=== PATIENT | male | born 1995 | race American Indian/Alaskan Native ===

== ENCOUNTER 2018-10-05 20:24 | Emergency (ER) | payer OTHER ==
[2018-10-05] MEDS ORDERED: ZOFRAN IV ONE ×2 (20:41→22:00)
[2018-10-05] MEDS ORDERED: NACL 0.9% 1000 ML 1,000 ML IV ONE (20:42)
--- NOTE | 2018-10-05 20:45 | Emergency Department Report ---
Chief Complaint: Nausea/Vomiting/Diarrhea Stated Complaint: FELICITAS/VOMITING Time Seen by Provider: 10/05/18 20:38 - HPI History of Present Illness: Pt has N/V/D since 2PM today Not tolerating PO intake no fever, urinary sx No past abdominal surgeries + drinker +smoker + marijuana use - Exam Vital Signs: Vital Signs 10/05/18 20:39 Temperature 97.9 F Pulse Rate 97 H Respiratory 20 Rate Blood Pressure 137/91 O2 Sat by Pulse 100 Oximetry MSE screening note: Focused history and physical exam performed. Due to findings the following was ordered:CBC, CMP ED Disposition for MSE Condition: Stable
[2018-10-05 21:24] LABS: Alanine Aminotransferase 23 units/L (7-56); Albumin 5.3 g/dL (3.9-5); BUN/Creatinine Ratio 9; Blood Urea Nitrogen 10 mg/dL (9-20); Calcium 10.6 mg/dL (8.4-10.2); Hemolysis Index 9
[2018-10-05 21:44] LABS: Mean Corpuscular HGB Conc 36 % (32-34); Mean Corpuscular Volume 90 fl (84-94); Platelet Count 239 K/mm3 (140-440); Red Blood Count 4.96 M/mm3 (3.65-5.03); Red Cell Distribution Width 13.6 % (13.2-15.2)
[2018-10-05 21:53] LABS: Hematocrit 44.8 % (35.5-45.6)
[2018-10-05] MEDS ORDERED: MORPHINE IV ONE (22:00)
[2018-10-05 22:29] LABS: Basophils % (Manual) 0 % (0.0-1.8); Eosinophils % (Manual) 0 % (0.0-4.3); RBC Morphology Normal; Total Cells Counted 100
--- NOTE | 2018-10-05 22:56 | XRay Report ---
PROCEDURE: XR CHEST 1V AP TECHNIQUE: Chest radiograph single view. HISTORY: sob COMPARISONS: None . FINDINGS: Heart: Normal. Mediastinum/Vessels: Normal. Lungs/Pleural space: Normal. Bony thorax: No acute osseous abnormality. Life support devices: None. IMPRESSION: No acute cardiopulmonary abnormality. This document is electronically signed by Dre Baeza MD., October 05 2018 10:54:36 PM ET
--- NOTE | 2018-10-05 23:31 | Emergency Department Report ---
ED Abdominal Pain HPI - General Chief Complaint: Nausea/Vomiting/Diarrhea Stated Complaint: FELICITAS/VOMITING Time Seen by Provider: 10/05/18 20:38 Source: patient Mode of arrival: Wheelchair Limitations: No Limitations - History of Present Illness Initial Comments: 23-year-old male with no significant past medical or surgical history presents to the hospital complaints of generalized abdominal pain, nausea, vomiting, and diarrhea. Initially patient is refusing to speak instead his mother and grandmother are speaking for him. Grandmother states she received a call from the patient's girlfriend (they live together) stating that he was not feeling well. Upon grandmother's arrival she noted patient shaking uncontrollably on the floor with repeated episodes of vomiting. No urinary incontinence noted. She also states that patient was short of breath and diaphoretic. Patient points to his lower abdomen area of pain, admits to vomiting, and complains of feeling short of breath. He denies dysuria, recent travel, fever, or sick contacts. As per screening exam patient smokes cigarettes, drinks alcohol, and uses marijuana. Severity scale (0 -10): 0 - Related Data Previous Rx's Medication Instructions Recorded Last Taken Type Cyclobenzaprine HCl [Flexeril 5mg] 5 mg PO TID #14 tablet 08/29/14 Unknown Rx Ibuprofen [Motrin] 800 mg PO Q8H PRN #30 tablet 08/29/14 Unknown Rx Bismuth Subsalicylate [Pepto 524 mg PO QID PRN #20 tab.chew 10/06/18 Unknown Rx Bismol] Ibuprofen [Motrin] 800 mg PO Q8HR PRN #30 tablet 10/06/18 Unknown Rx Ondansetron [Zofran Odt] 4 mg PO Q8HR PRN #20 tab.rapdis 10/06/18 Unknown Rx Allergies Allergy/AdvReac Type Severity Reaction Status Date / Time No Known Allergies Allergy Unverified 08/29/14 19:05 ED Review of Systems ROS: Stated complaint: FELICITAS/VOMITING Other details as noted in HPI Comment: All other systems reviewed and negative ED Past Medical Hx - Past Medical History Previous Medical History?: No - Surgical History Past Surgical History?: No - Social History Smoking Status: Current Every Day Smoker Substance Use Type: Alcohol, Marijuana - Medications Home Medications: Home Medications Medication Instructions Recorded Confirmed Last Taken Type Cyclobenzaprine HCl [Flexeril 5mg] 5 mg PO TID #14 tablet 08/29/14 Unknown Rx Ibuprofen [Motrin] 800 mg PO Q8H PRN #30 tablet 08/29/14 Unknown Rx Bismuth Subsalicylate [Pepto 524 mg PO QID PRN #20 tab.chew 10/06/18 Unknown Rx Bismol] Ibuprofen [Motrin] 800 mg PO Q8HR PRN #30 tablet 10/06/18 Unknown Rx Ondansetron [Zofran Odt] 4 mg PO Q8HR PRN #20 tab.rapdis 10/06/18 Unknown Rx ED Physical Exam - General Limitations: No Limitations - Other Other exam information: General: No limitations, patient is alert in no acute distress Head exam: Atraumatic, normocephalic Eyes exam: Normal appearance, pupils equal reactive to light, extraocular movements intact ENT: Moist mucous membrane, normal oropharynx Neck exam: Normal inspection, full range of motion, no meningismus nontender Respiratory exam: Clear to auscultation bilateral, no wheezes, rales, crackles Cardiovascular: Normal rate and rhythm, normal heart sounds Abdomen: Soft, nondistended, right lower quadrant suprapubic tenderness, with normal bowel sounds, no rebound, or guarding Extremity: Full range of motion normal inspection no deformity Back: Normal Inspection, full range of motion, no tenderness Neurologic: Alert, oriented x3, cranial nerves intact, no motor or sensory deficit Psychiatric: normal affect, normal mood Skin: Warm, dry, intact ED Course Vital Signs 10/05/18 10/05/18 10/05/18 20:39 21:39 21:49 Temperature 97.9 F Pulse Rate 97 H Respiratory 20 20 Rate Blood Pressure 137/91 Blood Pressure [Right] O2 Sat by Pulse 100 100 Oximetry 10/05/18 10/05/18 10/05/18 21:54 22:00 22:16 Temperature 98.6 F Pulse Rate 94 H 98 H 113 H Respiratory 143 H 13 14 Rate Blood Pressure 150/93 150/93 Blood Pressure 143/97 [Right] O2 Sat by Pulse 100 100 100 Oximetry 10/05/18 10/05/18 10/05/18 22:19 22:46 23:35 Temperature Pulse Rate 103 H 94 H Respiratory 18 14 15 Rate Blood Pressure 150/93 150/93 Blood Pressure [Right] O2 Sat by Pulse 100 100 Oximetry 10/05/18 10/06/18 10/06/18 23:41 00:00 00:16 Temperature Pulse Rate 83 105 H 108 H Respiratory 17 17 16 Rate Blood Pressure 127/68 132/67 Blood Pressure 127/68 [Right] O2 Sat by Pulse 98 100 Oximetry 10/06/18 10/06/18 00:30 00:46 Temperature Pulse Rate 81 101 H Respiratory 17 13 Rate Blood Pressure 124/65 124/65 Blood Pressure [Right] O2 Sat by Pulse 97 99 Oximetry - Reevaluation(s) Reevaluation #1: 10/06/18 01:02 The patient received pain medicine he is up and ambulating without any distress and able to communicate without difficulty. Informed of increased WBC count and urine but he denies symptoms. Patient will be treated empirically since gonorrhea and chlamydia is pending for several days. ED Medical Decision Making - Lab Data Result diagrams: 10/05/18 20:53 10/05/18 20:53 Lab Results 10/05/18 10/05/18 10/06/18 Range/Units 20:53 20:53 00:00 WBC 10.6 (4.5-11.0) K/mm3 RBC 4.96 (3.65-5.03) M/mm3 Hgb 16.0 H (11.8-15.2) gm/dl Hct 44.8 (35.5-45.6) % MCV 90 (84-94) fl MCH 32 (28-32) pg MCHC 36 H (32-34) % RDW 13.6 (13.2-15.2) % Plt Count 239 (140-440) K/mm3 Add Manual Diff Complete Total Counted 100 Seg Neutrophils % Manager Baby Seg Neuts % (Manual) 89.0 H (40.0-70.0) % Band Neutrophils % 0 % Lymphocytes % (Manual) 4.0 L (13.4-35.0) % Reactive Lymphs % (Man) 0 % Monocytes % (Manual) 7.0 (0.0-7.3) % Eosinophils % (Manual) 0 (0.0-4.3) % Basophils % (Manual) 0 (0.0-1.8) % Metamyelocytes % 0 % Myelocytes % 0 % Promyelocytes % 0 % Blast Cells % 0 % Nucleated RBC % Not Reportable Seg Neutrophils # Man 9.4 H (1.8-7.7) K/mm3 Band Neutrophils # 0.0 K/mm3 Lymphocytes # (Manual) 0.4 L (1.2-5.4) K/mm3 Abs React Lymphs (Man) 0.0 K/mm3 Monocytes # (Manual) 0.7 (0.0-0.8) K/mm3 Eosinophils # (Manual) 0.0 (0.0-0.4) K/mm3 Basophils # (Manual) 0.0 (0.0-0.1) K/mm3 Metamyelocytes # 0.0 K/mm3 Myelocytes # 0.0 K/mm3 Promyelocytes # 0.0 K/mm3 Blast Cells # 0.0 K/mm3 WBC Morphology Not Reportable Hypersegmented Neuts Not Reportable Hyposegmented Neuts Not Reportable Hypogranular Neuts Not Reportable Smudge Cells Not Reportable Toxic Granulation Not Reportable Toxic Vacuolation Not Reportable Dohle Bodies Not Reportable Pelger-Huet Anomaly Not Reportable Mat Rods Not Reportable Platelet Estimate Appears normal Clumped Platelets Not Reportable Plt Clumps, EDTA Not Reportable Large Platelets Not Reportable Giant Platelets Not Reportable Platelet Satelliting Not Reportable Plt Morphology Comment Not Reportable RBC Morphology Normal Dimorphic RBCs Not Reportable Polychromasia Not Reportable Hypochromasia Not Reportable Poikilocytosis Not Reportable Anisocytosis Not Reportable Microcytosis Not Reportable Macrocytosis Not Reportable Spherocytes Not Reportable Pappenheimer Bodies Not Reportable Sickle Cells Not Reportable Target Cells Not Reportable Tear Drop Cells Not Reportable Ovalocytes Not Reportable Helmet Cells Not Reportable Stokes-[place]rie Bodies Not Reportable Ingraham Rings Not Reportable [place] Cells Not Reportable Bite Cells Not Reportable Crenated Cell Not Reportable Elliptocytes Not Reportable Acanthocytes (Spur) Not Reportable Rouleaux Not Reportable Hemoglobin C Crystals Not Reportable Schistocytes Not Reportable Malaria parasites Not Reportable Lv Bodies Not Reportable Hem Pathologist Commnt No Sodium 140 (137-145) mmol/L Potassium 4.1 (3.6-5.0) mmol/L Chloride 100.8 (98-107) mmol/L Carbon Dioxide 21 L (22-30) mmol/L Anion Gap 22 mmol/L BUN 10 (9-20) mg/dL Creatinine 1.1 (0.8-1.5) mg/dL Estimated GFR > 60 ml/min BUN/Creatinine Ratio 9 % Glucose 128 H (75-100) mg/dL Calcium 10.6 H (8.4-10.2) mg/dL Total Bilirubin 0.80 (0.1-1.2) mg/dL AST 19 (5-40) units/L ALT 23 (7-56) units/L Alkaline Phosphatase 98 (35-129) units/L Total Protein 8.0 (6.3-8.2) g/dL Albumin 5.3 H (3.9-5) g/dL Albumin/Globulin Ratio 2.0 % Urine Color Yellow (Yellow) Urine Turbidity Clear (Clear) Urine pH 8.0 H (5.0-7.0) Ur Specific [place] 1.060 H (1.003-1.030) Urine Protein <15 mg/dl (Negative) mg/dL Urine Glucose (UA) Neg (Negative) mg/dL Urine Ketones Neg (Negative) mg/dL Urine Blood Neg (Negative) Urine Nitrite Neg (Negative) Ur Reducing Substances Not Reportable Urine Bilirubin Neg (Negative) Urine Ictotest Not Reportable Urine Urobilinogen < 2.0 (<2.0) mg/dL Ur Leukocyte Esterase Neg (Negative) Urine WBC (Auto) 9.0 H (0.0-6.0) /HPF Urine RBC (Auto) 2.0 (0.0-6.0) /HPF U Epithel Cells (Auto) 1.0 (0-13.0) /HPF Urine Mucus Few /HPF - Radiology Data Radiology results: report reviewed PROCEDURE: XR CHEST 1V AP TECHNIQUE: Chest radiograph single view. HISTORY: sob COMPARISONS: None . FINDINGS: Heart: Normal. Mediastinum/Vessels: Normal. Lungs/Pleural space: Normal. Bony thorax: No acute osseous abnormality. Life support devices: None. IMPRESSION: No acute cardiopulmonary abnormality. PROCEDURE: CT abdomen and pelvis with contrast. TECHNIQUE: Computerized axial tomography of the abdomen and pelvis was performed after the IV injection of iodinated nonionic contrast. CT DOSE LENGTH PRODUCT: 1183.62 mGycm HISTORY: Lower and right lower quadrant abdominal pain, nausea, vomiting and diarrhea. COMPARISONS: None. FINDINGS: The lung bases are clear. There are no pleural effusions. The heart size is normal. The liver, pancreas and spleen appear normal. The gallbladder is present. There is no biliary dilatation. The adrenal glands are not enlarged. Both kidneys appear normal in size and configuration. The abdominal aorta has a normal caliber. There is no retroperitoneal adenopathy. The unopacified gastrointestinal tract is unremarkable. A normal appendix is visible. The bladder, seminal vesicles and prostate appear normal. 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 There is no spondylolisthesis. IMPRESSION: Bilateral spondylolysis of L5. Otherwise normal studies of the abdomen and pelvis. - Medical Decision Making Symptoms likely secondary to gastroenteritis is given a unremarkable labs and CT. Urine positive for mild increased WBC count with a symptoms and de hydration. Patient treated empirically while culture is pending. Says pain has been managed patient is no longer exhibiting signs of shortness of breath and has normal pulse ox, respiratory rate, and chest x-ray. Patient should be discharged with symptomatic treatment and outpatient follow-up. - Differential Diagnosis gastroenteritis, drugs, anxiety, UTI, appendicitis Critical Care Time: No Critical care attestation.: If time is entered above; I have spent that time in minutes in the direct care of this critically ill patient, excluding procedure time. ED Disposition Clinical Impression: Gastroenteritis, Urine WBC increased Disposition: DC-01 TO HOME OR SELFCARE Is pt being admited?: No Does the pt Need Aspirin: No Condition: Stable Instructions: Gastroenteritis (ED), Nonspecific Urethritis in Men (ED) Additional Instructions: Take the medication as prescribed. Follow up with your doctor or the clinic/do ctor provided. Return if symptoms worsen as indicated by your discharge instructions. Your gonorrhea and chlamydia tests are pending and take approximately 3-4 days result. You may obtain results in medical records with a photo ID. You may also obtain results through the follow-up doctor office via medical record request. Prescriptions: Ibuprofen [Motrin] 800 mg PO Q8HR PRN #30 tablet PRN Reason: Pain, Moderate (4-6) Bismuth Subsalicylate [Pepto Bismol] 524 mg PO QID PRN #20 tab.chew PRN Reason: Diarrhea Ondansetron [Zofran Odt] 4 mg PO Q8HR PRN #20 tab.rapdis PRN Reason: Nausea And Vomiting Referrals: EMIL Guillen [Other] - 3-5 Days Time of Disposition: 01:06
--- NOTE | 2018-10-06 00:05 | Cat Scan Report ---
PROCEDURE: CT abdomen and pelvis with contrast. TECHNIQUE: Computerized axial tomography of the abdomen and pelvis was performed after the IV inject ion of iodinated nonionic contrast. CT DOSE LENGTH PRODUCT: 1183.62 mGycm HISTORY: Lower and right lower quadrant abdominal pain, nausea, vomiting and diarrhea. COMPARISONS: None. FINDINGS: The lung bases are clear. There are no pleural effusions. The heart size is normal. The liver, pancre as and spleen appear normal. The gallbladder is present. There is no biliary dilatation. The adrenal glands are not enlarged. Both kidneys appear normal in size and configuration. The abdominal aorta musa s a normal caliber. There is no retroperitoneal adenopathy. The unopacified gastrointestinal tract is unremarkable. A normal appendix is visible. The bladder, seminal vesicles and prostate appear normal . 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 There is no spondylolisthesis. IMPRESSION: Bilateral spondylolysis of L5. Otherwise normal studies of the abdomen and pelvis. This document is electronically signed by Sanjay Gonzalez MD., October 06 2018 12:03:04 AM ET
[2018-10-06 00:23] LABS: Mucus,Urine FEW /HPF
[2018-10-06 00:24] LABS: Bilirubin,Urine NEG (Negative); Blood,Urine NEG (Negative); Color,Urine Yellow (Yellow); Protein,Urine <15 mg/dL mg/dL (Negative); Urobilinogen,Urine < 2.0 mg/dL (<2.0)
[2018-10-06] MEDS ORDERED: ZITHROMAX PO ONE (01:02)
[2018-10-06 01:48] LABS: Amphetamine Screen,Urine PRESUMPTIVE NEGATIVE; Benzodiazepines Screen,Urine PRESUMPTIVE NEGATIVE; Methadone Screen,Urine PRESUMPTIVE NEGATIVE
[2018-10-06] MEDS ORDERED: ROCEPHIN 250 MG in NACL 0.9% 50 ML IV ONE (02:00)
[2018-10-06 02:26] VITALS: BP 110/68
[2018-10-06 02:29] LABS: Cannabinoid Screen,Urine PRESUMPTIVE POSITIVE; Cocaine Screen,Urine PRESUMPTIVE POSITIVE; Opiate Screen,Urine PRESUMPTIVE POSITIVE
== END 2018-10-06 02:26 | disposition home or self-care (01) ==
LOC: ED 20:24
DX: K52.9 Noninfective gastroenteritis and colitis, unspecified (principal); R82.998 Other abnormal findings in urine; F17.200 Nicotine dependence, unspecified, uncomplicated; F12.10 Cannabis abuse, uncomplicated
CPT/HCPCS: 36415; 71045; 74177; 80053; 80307; 81001; 85007; 85025; 96361; 96365; 96375; 96376; 99284; J0696; J2270; J2405; J7030; Q9967

== ENCOUNTER 2021-05-25 09:29 | Emergency (ER) | payer SELFPAY ==
[2021-05-25 09:37] VITALS: BP 159/105
[2021-05-25] MEDS ORDERED: predniSONE 20 MG TAB PO ONE (09:37)
--- NOTE | 2021-05-25 09:38 | Emergency Department Report ---
Minor Respiratory - HPI Chief Complaint: Sore Throat Stated Complaint: CHEST DISCOMFORT Time Seen by Provider: 05/25/21 09:37 Duration: 3 Days Pain Location: Chest Severity: mild Minor Respiratory: Yes Sore Throat, Yes Able to Tolerate Fluids, Yes Cough, No Rhinorrhea, No Ear Pain, No Sick Contacts, No Hemoptysis, No Chest Pain, No Shortness of Breath, No Fever Other History: 26YO AA COMES TO ER WITH CO COUGH AND SORE THROAT FOR 2 DAYS. GRANDMOTHER BRINGS HIM IN. NO FEVER OR CHILLS. NO CP OR SOB. DID NOT GET COVID IMMUNIZATION. NO HOME MEDS. AMBULATORY AND NON TOXIC ON ARRIVAL TO ER. ED Review of Systems ROS: Stated complaint: CHEST DISCOMFORT Other details as noted in HPI Comment: All other systems reviewed and negative ED Past Medical Hx - Past Medical History Previous Medical History?: No - Surgical History Past Surgical History?: Yes - Family History Family history: no significant - Social History Smoking Status: Current Every Day Smoker Substance Use Type: Alcohol, Marijuana - Medications Home Medications: Home Medications Medication Instructions Recorded Confirmed Last Taken Type Albuterol Sulfate [Proair 90 mcg IH QID PRN #1 aer.pow.ba 05/25/21 Unknown Rx Respiclick] Benzonatate [Tessalon Perles] 100 mg PO Q12H PRN #20 capsule 05/25/21 Unknown Rx Cetirizine HCl [ZyrTEC] 10 mg PO DAILY #30 capsule 05/25/21 Unknown Rx Fluticasone [Flonase] 1 spray NS QDAY #1 bottle 05/25/21 Unknown Rx predniSONE [Deltasone] 20 mg PO DAILY #5 tablet 05/25/21 Unknown Rx Minor Respiratory Exam - Exam General: Vital signs noted. No distress. Alert and acting appropriately. HEENT: Yes Pharyngeal Erythema, Yes Moist Mucous Membranes, Yes Rhinorrhea, No Pharyngeal Exudates, No Conjuctival Injection, No Frontal Tenderness, No Maxillary Tenderness Ear: Neither TM Bulge, Neither TM Erythema, Neither EAC Pain, Neither EAC Discharge Neck: Yes Supple, No Adenopathy Lungs: Yes Good Air Exchange, Yes Cough, No Wheezes, No Ronchi, No Stridor, No Labored Respirations, No Retractions, No Use of Accessory Muscles, No Other Abnormal Lung Sounds Heart: Yes Regular, No Murmur Abdomen: Yes Normal Bowel Sounds, No Tenderness, No Peritoneal Signs Skin: No Rash, No Edema Neurologic: Alert and oriented, no deficits. Musculoskeletal: Unremarkable. ED Course Vital Signs 05/25/21 09:36 Temperature 99.3 F Pulse Rate 75 Respiratory 18 Rate Blood Pressure 159/105 O2 Sat by Pulse 99 Oximetry ED Medical Decision Making - Radiology Data Radiology results: report reviewed, image reviewed NAP - Medical Decision Making Vital Signs 05/25/21 09:36 Temperature 99.3 F Pulse Rate 75 Respiratory 18 Rate Blood Pressure 159/105 O2 Sat by Pulse 99 Oximetry XRAY NOTED PT STATES BP ALWAYS INC WHEN HE IS AT THE DOCTOR- HE WILL MONITOR; NO DX HTN MEDICATED IN ER WITH MOTRIN AND PREDNISONE TAKING PO AMBULATORY WITHOUT HYPOXIA DC HOME WITH TX FOR VIRAL URI- PT VERBALIZES UNDERSTANDING OF DC PLAN OF CARE INCLUDING MED, HYDRATION AND FOLLOW UP. CAROLINE ENCOURAGED COVID IMMUNIZATION. PT VERBALIZES UNDERSTANDING OF DC PLAN OF CARE. - Differential Diagnosis URI/ COVID/PNA Critical care attestation.: If time is entered above; I have spent that time in minutes in the direct care of this critically ill patient, excluding procedure time. ED Disposition Clinical Impression: URI (upper respiratory infection), Bronchitis, Elevated blood pressure reading Disposition: 01 HOME / SELF CARE / HOMELESS Is pt being admited?: No Does the pt Need Aspirin: No Condition: Stable Instructions: Viral Respiratory Infection, [id number], Chronic Bronchitis (ED) Additional Instructions: meds as ordered today motrin or tylenol for fever or pain stay well hydrated with water follow up with pcp in 48 for recheck referral below xray normal today Prescriptions: predniSONE [Deltasone] 20 mg PO DAILY #5 tablet Fluticasone [Flonase] 1 spray NS QDAY #1 bottle Albuterol Sulfate [Proair Respiclick] 90 mcg IH QID PRN #1 aer.pow.ba PRN Reason: Wheezing Benzonatate [Tessalon Perles] 100 mg PO Q12H PRN #20 capsule PRN Reason: Cough Cetirizine HCl [ZyrTEC] 10 mg PO DAILY #30 capsule Referrals: PRIMARY CAREMD [Primary Care Provider] - 3-5 Days THOR LINARES MD [Staff Physician] - 3-5 Days Time of Disposition: 09:56
--- NOTE | 2021-05-25 10:03 | XRay Report ---
CHEST 2 VIEWS INDICATION / CLINICAL INFORMATION: cough. COMPARISON: Chest x-ray on 10/05/2018 FINDINGS: SUPPORT DEVICES: None. HEART / MEDIASTINUM: No significant abnormality. LUNGS / PLEURA: No significant pulmonary or pleural abnormality. No pneumothorax. ADDITIONAL FINDINGS: No significant additional findings. IMPRESSION: 1. No acute findings. Signer Name: Nitesh Davis MD Signed: 05/25/2021 9:59 AM Workstation Name: [id number]
== END 2021-05-25 10:16 | disposition home or self-care (01) ==
LOC: ED 09:29
DX: J06.9 Acute upper respiratory infection, unspecified (principal); J40 Bronchitis, not specified as acute or chronic; R03.0 Elevated blood-pressure reading, without diagnosis of hypertension; F17.200 Nicotine dependence, unspecified, uncomplicated; F10.20 Alcohol dependence, uncomplicated; F12.90 Cannabis use, unspecified, uncomplicated
CPT/HCPCS: 71046; 99283; J7512